=== PATIENT | female | born 1975 ===

== ENCOUNTER 2022-07-05 10:31 | Inpatient (IN) | payer MEDICARE, MEDICAID ==
[2022-07-05] MEDS ORDERED: ACETAMINOPHEN TAB 325 MG TAB PO PRN (12:41)
[2022-07-05] MEDS ORDERED: MAG HYDROX/AL HYDROX/SIMETH 30 ML CUP PO PRN (12:41)
[2022-07-05] MEDS ORDERED: MAGNESIUM HYDROXIDE 2,400 MG/10 ML CUP PO PRN (12:41)
[2022-07-05] MEDS ORDERED: HALOPERIDOL LACTATE 5 MG/ML 1 ML VIAL IM PRN (12:41)
[2022-07-05] MEDS ORDERED: LORazepam 2 MG/ML INJ IM PRN (12:44)
[2022-07-05] MEDS: LORazepam 1 MG TAB PO PRN (20:03)
[2022-07-05] MEDS: haloperidoL 5 MG TAB PO PRN (21:15)
[2022-07-06] MEDS: LEVOTHYROXINE 88 MCG TAB PO SCH (05:59)
[2022-07-06] MEDS: NICOTINE 14MG/24HR PATCH TRANSDERM SCH (08:49)
[2022-07-06 10:23] LABS: Chol/HDL Ratio 4.07 Ratio; LDL Cholesterol,Calculated 110.4 mg/dL (0.0-131.0)
--- NOTE | 2022-07-06 13:32 | P.CONS ---
History of Present Illness - Reason for Consult Consult date: 07/06/22 - History of Present Illness Patient is a 46-year-old female with PMH of hypothyroidism, iron deficiency anemia who is transferred from [facility] for behavioral disturbances. He has been admitted to the mental health unit for further management of symptoms. [facility] has been consulted for medical management this patient. Patient has no complaints today. She denies any headache, lower extremity edema, nausea or vomiting, fever or chills, cough, chest pain, shortness of breath, palpitations, changes in urination or bowel habits. No changes in appetite or weight. She denies any dizziness, numbness/weakness/tingling of the extremities. Patient reports smoking 2 cigarettes daily. She reports cocaine use on the weekend. She reports social drinking. Review of systems is performed and is negative except above. General: non toxic, no distress, appears at stated age Derm: warm, dry Head: atraumatic, normocephalic, symmetric Eyes: EOMI, no lid lag, anicteric sclera Cardiovascular: S1S2 reg, no murmur, positive posterior tibial pulse bilateral Lungs: CTA bilateral, no rhonchi, no rales , no accessory muscle use Abdominal: soft, nontender to palpation, no guarding, no appreciable organomegaly Ext: no gross muscle atrophy, no edema, no contractures Neuro: CN II-XI grossly intact, no focal neuro deficits Psych: Alert, oriented, appropriate affect #Hypothyroidism #Iron deficiency anemia #Nicotine abuse #Cocaine abuse Patient will be restarted on Synthroid. CBC has not been done to evaluate her anemia. Restart ferrous sulfate. Patient has been offered a nicotine patch. Patient has been encourage to quit illicit substances. Thank you for this consultation. Please call [facility] with additional questions or concerns. Past Medical History Past Medical History: No Reported History History of Any Multi-Drug Resistant Organisms: None Reported Past Surgical History: No Surgical Hx Reported Past Anesthesia/Blood Transfusion Reactions: No Reported Reaction Past Psychological History: No Psychological Hx Reported Smoking Status: Current every day smoker Past Alcohol Use History: None Reported Past Drug Use History: None Reported Medications and Allergies Allergies Allergy/AdvReac Type Severity Reaction Status Date / Time lactose Allergy Unknown Verified 07/05/22 12:41 morphine Allergy Unknown Verified 07/05/22 12:41 tramadol Allergy Unknown Verified 07/05/22 12:41 ziprasidone [From Geodon] Allergy Unknown Verified 07/05/22 12:41 Physical Exam Vitals: Vital Signs Temp Pulse Resp BP 07/05/22 14:19 97.8 F 57 L 16 152/85 Results Labs: Abnormal Lab Results - Last 24 Hours (Table) 07/06/22 Range/Units 07:25 TSH 93.400 H (0.465-4.680) mIU/L
[2022-07-06] MEDS: LORazepam 1 MG TAB PO PRN (14:27)
--- NOTE | 2022-07-06 15:05 | P.HP ---
Psychiatric H&P - . H&P Date: 07/06/22 History & Physical: Allergies Allergy/AdvReac Type Severity Reaction Status Date / Time lactose Allergy Unknown Verified 07/05/22 12:41 morphine Allergy Unknown Verified 07/05/22 12:41 tramadol Allergy Unknown Verified 07/05/22 12:41 ziprasidone From Geodon Allergy Unknown Verified 07/05/22 12:41 Vital Signs Temp 97.8 F 07/05/22 14:19 Pulse 57 L 07/05/22 14:19 Resp 16 07/05/22 14:19 BP 152/85 07/05/22 14:19 Pulse Ox FiO2 Intake & Output 07/05/22 07/06/22 07/06/22 18:59 06:59 18:59 Weight 120 kg Laboratory Last Values Estimated Ave Glu mg/dL 121 07/06/22 07:25 Hemoglobin A1c 5.8 % (0.0-6.0) 07/06/22 07:25 Triglycerides 112.00 mg/dL (0.00-149.00) 07/06/22 07:25 Cholesterol 176.00 mg/dL (0.00-200.00) 07/06/22 07:25 LDL Cholesterol, Calc 110.4 mg/dL (0.0-131.0) 07/06/22 07:25 VLDL Cholesterol, Calc 22.40 mg/dL (5.00-40.00) 07/06/22 07:25 HDL Cholesterol 43.20 mg/dL (40.00-60.00) 07/06/22 07:25 Cholesterol/HDL Ratio 4.07 Ratio 07/06/22 07:25 TSH 93.400 mIU/L (0.465-4.680) H 07/06/22 07:25 07/06/22 14:58 IDENTIFYING DATA: Patient is a 46-year-old female who is currently , living with her boyfriend in an apartment, has foster children. She currently works at the [employer]. HPI: Patient presented to the hospital on a petition and certificate as a transfer from [facility] in [place]. Patient apparently overdosed on trazodone according to the petition. Patient was seen today and agreeable to speak to customs entry writer in the office. Patient claims that she got into a argument with her boyfriend at home. She states that she "let my emotions get the best of me" and states that she relapsed shortly after that. She claims that she used "a lot" of alcohol in 1 day and also $100 worth of cocaine. She claims that when she came back to the home she began arguing again with her boyfriend. She states that she is ashamed and felt bad about relapsing after being sober for 7 months. She claims that she attempted to kick her out of the house. She states that she was refusing and arguing back with him. She claims that she overdosed on an old prescription of trazodone about 15-20 pills alone at home. She claims that she felt sleepy and her boyfriend called EMS. She claims she does have times where she feels that she has a "manic episode". She states that she has a history of bipolar disorder in her family as well. She also states that she has racing thoughts and anxiety. She feels guilty and lots of her credits this time. She claims that she has been off medications for about one half years and does not trust outpatient providers. She claims that her sleep is "not good" and also her appetite has been fair. Patient denies any current suicidal or homicidal ideations intent or plan. At this time patient denies any auditory or visual hallucinations. Patient admits to using cocaine and alcohol as noted above. She claims that she does smoke cigarettes as well daily. PAST PSYCHIATRIC HISTORY: Patient states that she has a history of bipolar disorder, anxiety. And she claims that she used to be on several psychiatric medications in the past including Seroquel and Lamictal and also lithium. She claims that she has been psychiatrically admitted several times in the past. She states that her last admission was in 2017 in [facility]. Patient denies any psychiatric outpatient follow-up. Patient denies any history of suicide attempts in the past. PMH: As per medicine H&P. ALLERGIES: as per EMR CHEMICAL DEPENDENCY HISTORY: as per HPI FAMILY PSYCHIATRIC/SUBSTANCE USE HISTORY: Claims that her sister has bipolar disorder, mother has schizophrenia. SOCIAL HISTORY: Patient was born and raised in [place] and also in [place]. She claims that she completed her GED. She states that she went [place] for a [place]. She currently works at the [employer]. She has 3 foster children. She currently is . She lives her boyfriend in an apartment. MENTAL STATUS EXAM: General Appearance: Patient appears to be overweight, stated age is alert, directable, and attempts to cooperate. Patient appears to have poor hygiene and grooming. Behavior: Patient is seated without any agitated behavior. Timid. Poor eye contact. Speech: Patient's speech is fluent and nonpressured. Soft tone. Mood/Affect: Patient reports their mood is depressed and anxious, affect is congruent and constricted. Suicidality/Homicidality: Patient denies having any homicidal ideation intent or plan. Denies any suicidal ideations intent or plan Perceptions: Patient denies any visual hallucinations and denies any auditory hallucinations Though content/process: There is no evidence of any delusional thought content and thought process is linear and goal-directed. Focused on her symptoms. Memory and concentration: AOX3, grossly intact for the purposes of this session. Can spell "WORLD" backwards Judgment and insight: fair STRENGTHS/WEAKNESSES: strength is that patient is resilient. Weakness is that patient has poor judgment and is impulsive INTELLECT: average IMPRESSIONS: Overdose of medications Bipolar disorder, current episode depressed Cocaine abuse Alcohol abuse Nicotine dependence PLAN: -Patient is admitted under voluntary status to MHU for stabilization of psychiatric symptoms and safety. Patient has signed adult voluntary form and medication consent and is placed in patient's chart. -Medications : Will start patient on lithium 300 mg twice a day for mood stabilization, Remeron 15 mg daily at bedtime for mood/anxiety/sleep. -Ativan and Haldol PRN for agitation/aggression -Patient was counselled on substance abuse and desired to cut back on use and wants to join an [facility] prgram upon discharge. -Patient was informed of the risks, benefits and side effects of the medication and patient verbally consented to taking the medications. Patient signed med consent form and was placed in chart. -Internal Medicine consult to perform medical evaluation and physical. -NRT - nicotine patch -SW on board for discharge planning. Encourage patient to participate in groups to work on coping skills.
[2022-07-06] MEDS: LITHIUM CARBONATE 300 MG CAP PO SCH ×2 (16:24→20:42)
[2022-07-06] MEDS: haloperidoL 5 MG TAB PO PRN (16:24)
[2022-07-06] MEDS: MIRTAZAPINE 15 MG TAB PO SCH (20:42)
[2022-07-07] MEDS: LEVOTHYROXINE 88 MCG TAB PO SCH (05:42)
[2022-07-07 06:52] VITALS: BP 106/55; PULSE 51; RESP 18; TEMP 96.6
[2022-07-07] MEDS: NICOTINE 14MG/24HR PATCH TRANSDERM SCH (09:52)
[2022-07-07] MEDS: LITHIUM CARBONATE 300 MG CAP PO SCH ×2 (09:52→20:10)
[2022-07-07] MEDS ORDERED: hydrOXYzine pamoate 25 MG CAP PO PRN (11:03)
[2022-07-07] MEDS ORDERED: hydrOXYzine HCL 50 MG/ML 1 ML VIAL IM PRN (11:03)
--- NOTE | 2022-07-07 11:08 | P.PN ---
Progress Note - Text Progress Note Date: 07/07/22 Interval History: Patient was seen wandering the hallways and was directable and agreeable to huyen padilla with development writer in the office. Patient claims that she is sleeping better last night with the Remeron. She claims that she feels mildly tired this morning however has been trying to get up and go to groups. She states that her mood and anxiety began gradually improving. She claims that the lithium that she is tolerating it well at this time and feels that "my mind is more stable". She claims that her appetite has also been improving mildly. She states that she needed to take a Ativan and helpful yesterday prn as she was getting "too anxious" and states that the Ativan meet her feel even worse so she needed to take a health on top of that. She claims that she would prefer to be on Vistaril instead. At this time patient denies any suicidal or homical ideations, intent or plan. Patient denies any auditory, visual hallucinations and denies any paranoia or delusions. Patient denies any side effects from the medications and has been compliant with meds. Mental Status Exam: General Appearance: Patient appears to be overweight, stated age is alert, directable, and attempts to cooperate. Patient appears to have improving hygiene and grooming. Behavior: Patient is seated without any agitated behavior. Improving eye contact. Speech: Patient's speech is fluent and nonpressured. Soft tone, providing mildly Mood/Affect: Patient reports their mood is improving mildly, affect is congruent and constricted. Suicidality/Homicidality: Patient denies having any homicidal ideation intent or plan. Denies any suicidal ideations intent or plan Perceptions: Patient denies any visual hallucinations and denies any auditory hallucinations Though content/process: There is no evidence of any delusional thought content and thought process is linear and goal-directed. Memory and concentration: AOX3, grossly intact for the purposes of this session. Judgment and insight: fair IMPRESSIONS: Overdose of medications Bipolar disorder, current episode depressed Cocaine abuse Alcohol abuse Nicotine dependence Plan: -Patient continues to meet criteria for inpatient psychiatric admission for symptom stabilization and safety. Patient has signed adult voluntary form and medication consent and was placed in patient's chart. -Medications: lithium 300 mg twice a day for mood stabilization, Remeron 15 mg daily at bedtime for mood/anxiety/sleep. -When necessary Vistaril and Haldol for agitation/aggression. -NRT - nicotine patch -SW on board for discharge planning. Encouraged the patient to participate in milieu. likely discharge tomorrow if patient continues to improve.
[2022-07-07] MEDS: FERROUS SULFATE 325 MG TAB PO SCH (13:05)
[2022-07-07 15:21] LABS: Potassium 4.4 mmol/L (3.5-5.1)
[2022-07-07] MEDS: MIRTAZAPINE 15 MG TAB PO SCH (20:10)
[2022-07-08] MEDS: LEVOTHYROXINE 88 MCG TAB PO SCH (07:14)
[2022-07-08] MEDS: FERROUS SULFATE 325 MG TAB PO SCH (08:43)
[2022-07-08] MEDS: LITHIUM CARBONATE 300 MG CAP PO SCH (08:43)
[2022-07-08] MEDS: NICOTINE 14MG/24HR PATCH TRANSDERM SCH (08:44)
--- NOTE | 2022-07-08 09:28 | P.DS ---
Providers Date of admission: 07/05/22 13:23 Expected date of discharge: 07/08/22 Attending physician: Matt El MD Consults: 07/05/22 12:41 Consult Physician Routine Consulting Provider: Memo Reed Consult Reason/Comments: H and P Do you want consulting provider notified?: Yes Primary care physician: Stated None - Discharge Diagnosis(es) (1) Overdose of medication Current Visit: Yes Status: Acute Priority: High (2) Bipolar disorder current episode depressed Current Visit: Yes Status: Acute Priority: High (3) Cocaine abuse Current Visit: Yes Status: Acute Priority: High (4) Alcohol abuse Current Visit: Yes Status: Acute Priority: High (5) Nicotine dependence Current Visit: Yes Status: Acute Priority: Low Hospital Course: Admission HPI: Admission note was completed by conventional underwriter "Patient is a 46-year-old female who is currently , living with her boyfriend in an apartment, has foster children. She currently works at the [employer]. Patient presented to the hospital on a petition and certificate as a transfer from [place] in [place]. Patient apparently overdosed on trazodone according to the petition. Patient was seen today and agreeable to speak to conventional underwriter in the office. Patient claims that she got into a argument with her boyfriend at home. She states that she "let my emotions get the best of me" and states that she relapsed shortly after that. She claims that she used "a lot" of alcohol in 1 day and also $100 worth of cocaine. She claims that when she came back to the home she began arguing again with her boyfriend. She states that she is ashamed and felt bad about relapsing after being sober for 7 months. She claims that she attempted to kick her out of the house. She states that she was refusing and arguing back with him. She claims that she overdosed on an old prescription of trazodone about 15-20 pills alone at home. She claims that she felt sleepy and her boyfriend called EMS. She claims she does have times where she feels that she has a "manic episode". She states that she has a history of bipolar disorder in her family as well. She also states that she has racing thoughts and anxiety. She feels guilty and lots of her credits this time. She claims that she has been off medications for about one half years and does not trust outpatient providers. She claims that her sleep is "not good" and also her appetite has been fair. Patient denies any current suicidal or homicidal ideations intent or plan. At this time patient denies any auditory or visual hallucinations. Patient admits to using cocaine and alcohol as noted above. She claims that she does smoke cigarettes as well daily." Hospital course: Upon admission to the unit patient was directable and agreeable to commence treatment and signed adult voluntary form. Patient got along well with other patients on the unit and followed unit protocol. Patient was compliant with the medications and denied any side effects throughout hospital course. Patient was started on lithium 300 mg twice a day for mood stabilization, Remeron 15 mg daily at bedtime for mood/anxiety/sleep, naltrexone 50 mg by mouth daily for alcohol cravings. Patient spoke of her stressors and engaged in therapy both group and individual. Patient was also seen by medical team for history and physical exam. Throughout the course of the hospitalization patient gradually improved with regards to mood, anxiety, sleep and returned back to their baseline level of functioning. On the day of discharge patient denied any suicidal or homicidal ideations intent or plan denied any auditory or visual hallucinations. Patient endorsed wanting to live for her health and her future and also to stay sober. The patient denied any access to guns or weapons. Patient denied any paranoia and did not endorse any delusions. Patient does have a significant history of substance abuse and was counseled on abstaining from all substances including alcohol and marijuana. Patient was offered however declined inpatient substance-abuse rehab. Patient claims that she wants to look further into possibly doing IOP program through [facility]. Patient was also counseled on the medications and need for regular compliance and was encouraged to follow-up with their outpatient appointment for mental health and also for primary care. Prior to discharge a family meeting will be arranged by nursing home social worker to answer any questions and ensure safety upon discharge. Mental status exam: General Appearance: Patient appears to be overweight, stated age is alert, pleasant, and cooperative. Patient is in no acute distress and has improved hygiene and grooming Behavior: Patient is calmly seated without any agitated behavior. Speech: Patient's speech is fluent and nonpressured. Mood/Affect: Patient reports their mood is "good", affect is congruent Suicidality/Homicidality: Patient denies having any suicidal or homicidal ideation intent or plan. Perceptions: Patient denies any auditory or visual hallucinations. Though content/process: There is no evidence of any delusional thought content and thought process is linear and goal-directed. more future oriented Memory and concentration: AOX3, grossly intact for the purposes of this session. Can spell "WORLD" backwards correctly. Judgment and insight: improved with guarded prognosis Impression: Overdose of medications Bipolar disorder, current episode depressed Cocaine abuse Alcohol abuse Nicotine dependence Plan: -Continue with discharge today as patient has improved and stabilized psychiatrically and is not currently an imminent threat to herself and/or others. Patient will remain at chronically elevated risk for harm to self and/or others due to her impulsivity and polysubstance abuse. -Continue medications: Mountainaire 300 mg twice a day for mood stabilization, Remeron 15 mg daily at bedtime for mood/anxiety/sleep, naltrexone 50 mg by mouth daily for cravings of alcohol. -Patient was counseled on the need for medication compliance and appropriate follow-up at mental health and also primary care for medical issues. Patient verbalized understanding and agreed. -Social work to arrange for and conduct family meeting to ensure safety upon discharge and answer any questions/concerns. Social work also to arrange for patients follow up appointments with [facility] for psychiatric care along with follow up with primary care provider. -Patient counseled on abstaining from recreational drugs and marijuana and alcoh ol. Was informed/educated on the adverse effects on their physical and mental health. Patient verbally agreed and understood. Patient was offered substance abuse treatment however declined at this time. -Patient was instructed to return to the hospital or seek immediate medical care if their psychiatric or medical symptoms do worsen or reoccur. Allergies Allergy/AdvReac Type Severity Reaction Status Date / Time lactose Allergy Unknown Verified 07/05/22 12:41 morphine Allergy Unknown Verified 07/05/22 12:41 tramadol Allergy Unknown Verified 07/05/22 12:41 ziprasidone [From Geodon] Allergy Unknown Verified 07/05/22 12:41 Laboratory Results Sodium 141 mmol/L (137-145) 07/07/22 14:47 Potassium 4.4 mmol/L (3.5-5.1) 07/07/22 14:47 Chloride 102 mmol/L (98-107) 07/07/22 14:47 Carbon Dioxide 27 mmol/L (22-30) 07/07/22 14:47 Anion Gap 12 mmol/L 07/07/22 14:47 BUN 20 mg/dL (7-17) H 07/07/22 14:47 Creatinine 1.18 mg/dL (0.52-1.04) H 07/07/22 14:47 Est GFR (CKD-EPI)AfAm 63 (>60 ml/min/1.73 sqM) 07/07/22 14:47 Est GFR (CKD-EPI)NonAf 55 (>60 ml/min/1.73 sqM) 07/07/22 14:47 Glucose 119 mg/dL (74-99) H 07/07/22 14:[address] Glu mg/dL 121 07/06/22 07:25 Hemoglobin A1c 5.8 % (0.0-6.0) 07/06/22 07:25 Calcium 9.0 mg/dL (8.4-10.2) 07/07/22 14:47 Triglycerides 112.00 mg/dL (0.00-149.00) 07/06/22 07:25 Cholesterol 176.00 mg/dL (0.00-200.00) 07/06/22 07:25 LDL Cholesterol, Calc 110.4 mg/dL (0.0-131.0) 07/06/22 07:25 VLDL Cholesterol, Calc 22.40 mg/dL (5.00-40.00) 07/06/22 07:25 HDL Cholesterol 43.20 mg/dL (40.00-60.00) 07/06/22 07:25 Cholesterol/HDL Ratio 4.07 Ratio 07/06/22 07:25 TSH 93.400 mIU/L (0.465-4.680) H 07/06/22 07:25 Vital Signs Temp 96.6 F L 07/07/22 05:25 Pulse 51 L 07/07/22 05:25 Resp 18 07/07/22 05:25 BP 106/55 07/07/22 05:25 Pulse Ox 100 07/07/22 05:25 FiO2 Patient Condition at Discharge: Stable Plan - Discharge Summary Discharge Rx Participant: No New Discharge Prescriptions: New Nicotine 14Mg/24Hr Patch [Habitrol] 1 patch TRANSDERM DAILY 14 Days patch hydrOXYzine pamoate [Vistaril] 25 mg PO TID PRN 30 Days cap PRN Reason: Anxiety Ferrous Sulfate [Iron (65 MG Elemental)] 325 mg PO W/LUNCH 30 Days tab Mountainaire Carbonate 300 mg PO BID 30 Days cap Mirtazapine [Remeron] 15 mg PO HS 30 Days tab Levothyroxine Sodium [Synthroid] 176 mcg PO DAILY@0630 tab Naltrexone HCl [Revia] 50 mg PO DAILY 30 Days tab Discharge Medication List Ferrous Sulfate [Iron (65 MG Elemental)] 325 mg PO W/LUNCH 30 Days tab 07/08/22 [Rx] Levothyroxine Sodium [Synthroid] 176 mcg PO DAILY@0630 tab 07/08/22 [Rx] Mountainaire Carbonate 300 mg PO BID 30 Days cap 07/08/22 [Rx] Mirtazapine [Remeron] 15 mg PO HS 30 Days tab 07/08/22 [Rx] Naltrexone HCl [Revia] 50 mg PO DAILY 30 Days tab 07/08/22 [Rx] Nicotine 14Mg/24Hr Patch [Habitrol] 1 patch TRANSDERM DAILY 14 Days patch 07/08/22 [Rx] hydrOXYzine pamoate [Vistaril] 25 mg PO TID PRN 30 Days cap 07/08/22 [Rx] Follow up Appointment(s)/Referral(s): Maikol GARCIA([place]) [Other] - 07/22/22 10:00 am (Telehealth with Tiffany) Activity/Diet/Wound Care/Special Instructions: Avoid the use of street drugs and alcohol. Take all prescriptions as prescribed. When you are in need of refills on your medications, please contact your medical provider and/or outpatient psychiatrist to have this done. Please go to scheduled outpatient appointment for aftercare treatment. If symptoms return or become worse, call the crisis line at and/or go to the nearest emergency room for evaluation. Discharge Disposition: HOME SELF-CARE
[2022-07-08] MEDS ORDERED: NALTREXONE HCL 50 MG TAB PO SCH (09:30)
== END 2022-07-08 12:30 | disposition home or self-care (01) | DRG 918 ==
LOC: 3MHU 13:23
PROVIDERS: ADMIT Psychiatry & Neurology Psychiatry; ATTEND Psychiatry & Neurology Psychiatry
DX: T43.212A Poisoning by selective serotonin and norepinephrine reuptake inhibitors, intentional self-harm, initial encounter (principal); F31.30 Bipolar disorder, current episode depressed, mild or moderate severity, unspecified; E03.9 Hypothyroidism, unspecified; F10.10 Alcohol abuse, uncomplicated; F14.10 Cocaine abuse, uncomplicated; F17.210 Nicotine dependence, cigarettes, uncomplicated; F41.9 Anxiety disorder, unspecified; Z79.899 Other long term (current) drug therapy; Z88.5 Allergy status to narcotic agent; Z71.41 Alcohol abuse counseling and surveillance of alcoholic; Z91.011 Allergy to milk products; Z71.6 Tobacco abuse counseling; Z81.8 Family history of other mental and behavioral disorders
CPT/HCPCS: 80048; 80061; 83036; 84443